=== PATIENT | female | born 1970 | race Caucasian/White ===

== ENCOUNTER 2021-03-20 08:59 | Emergency (ER) | payer OTHER ==
[~2021-03-20] VITALS: Ht 167.6 cm; Wt 124.7 kg
== END 2021-03-20 12:15 | disposition home or self-care (01) ==
LOC: ER1 08:59
DX: U07.1 COVID-19 (principal); Z23 Encounter for immunization; Z90.49 Acquired absence of other specified parts of digestive tract; Z88.5 Allergy status to narcotic agent
CPT/HCPCS: 71045; 99284; M0245